=== PATIENT | female | born 1955 | race Caucasian/White ===

== ENCOUNTER 2024-05-11 11:55 | Emergency (ER) | payer OTHER, MEDICARE ==
[~2024-05-11] VITALS: Ht 167.6 cm; Wt 59.0 kg
[2024-05-11] MEDS ORDERED: Diphth,Pertuss(Acell),Tet Vac 0.5 ML VIAL IM ONE (12:10)
== END 2024-05-11 13:21 | disposition home or self-care (01) ==
LOC: ER 11:55
DX: S01.81XA Laceration without foreign body of other part of head, initial encounter (principal); S05.11XA Contusion of eyeball and orbital tissues, right eye, initial encounter; W01.0XXA Fall on same level from slipping, tripping and stumbling without subsequent striking against object, initial encounter; Z88.5 Allergy status to narcotic agent
CPT/HCPCS: 70450; 90471; 90715; 99283-25